=== PATIENT | female | born 1985 | race African-American/Black ===

== ENCOUNTER 2016-11-29 03:30 | Emergency (ER) | payer MEDICAID ==
[~2016-11-29] VITALS: Ht 160 cm; Wt 68.0 kg
[~2016-11-29 03:30] MED LIST: DICY1TAB26 PO; PROM25SU8 PO; ZOFR4TAB3 SL
[2016-11-29 03:33] VITALS: BP 124/76; PULSE 64; RESP 16; TEMP 98; O2SAT 100
== END 2016-11-29 04:14 | disposition left against medical advice (07) ==
LOC: NED 03:30
DX: Z53.21 Procedure and treatment not carried out due to patient leaving prior to being seen by health care provider (principal)
CPT/HCPCS: 99281

== ENCOUNTER 2017-01-22 14:26 | Emergency (ER) | payer MEDICAID ==
[2017-01-22 14:27] VITALS: BP 132/84; PULSE 112; RESP 20; TEMP 97.8; O2SAT 99
[2017-01-22 14:40] VITALS: BP 131/78; PULSE 105; RESP 18; O2SAT 100
--- NOTE | 2017-01-22 14:53 | PD ---
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 Last period approximately 6 weeks ago. She was due to have her menses 2 weeks ago but missed it. Today she began to have cramping within the pelvis, vaginal bleeding. This is her normal menses. She does not believe she could be , but has not taken any home test. Patient states that she is using one pad every 3-4 hours, dime size clots. No urinary symptoms. Pain is mild to moderate, crampy, primarily suprapubic but radiates her at the pelvis PFSH Past Medical History Hx Anticoagulant Therapy: No Asthma: Yes Blood Disorders: No Cardiovascular Problems: No Chemotherapy: No Cerebrovascular Accident: No Diabetes: No Hypertension: Yes Respiratory: No ?: Unknown : 2 Para: 1 : 1 Past Surgical History Hysterectomy: No Social History Alcohol Use: Yes Tobacco Use: Yes (1/2 PPD) Substance Use: No Allergies-Medications (Allergen,Severity, Reaction): Coded Allergies: No Known Allergies (Verified , 11/29/16) Reported Meds & Prescriptions Reported Meds & Active Scripts Active No Active Prescriptions or Reported Medications Review of Systems Except as stated in HPI: all other systems reviewed are Neg Physical Exam Narrative GENERAL: Well-appearing female in no acute distress SKIN: Focused skin assessment warm/dry. HEAD: Normocephalic. EYES: No scleral icterus. No injection or drainage. ENT: Mucous membranes pink and moist. NECK: Supple CARDIOVASCULAR: Regular rate and rhythm. RESPIRATORY: No accessory muscle use. GASTROINTESTINAL: Abdomen soft, non-tender, nondistended. MUSCULOSKELETAL: Normal gait NEUROLOGICAL: Awake and alert. Normal speech. PSYCHIATRIC: Appropriate mood and affect; insight and judgment normal. Data Data Last Documented VS Vital Signs Date Time Temp Pulse Resp B/P Pulse Ox O2 Delivery O2 Flow Rate FiO2 01/22/17 14:40 105 18 131/78 100 Room Air 01/22/17 14:27 97.8 Orders Ed Urine Pregnancytest Poc (01/22/17 14:42) MDM Medical Decision Making Medical Screen Exam Complete: Yes Emergency Medical Condition: Yes Medical Record Reviewed: Yes Differential Diagnosis 31-year-old female here with complaint of vaginal bleeding and cramping in the abdomen/pelvis 2 weeks after missed period. Differential includes , ectopic , threatened AB, missed AB, inevitable AB, dysmenorrhea, menorrhagia Narrative Course Urine test negative. Symptoms likely due to a 2 week late menstrual period, which will no doubt be heavier given 2 additional weeks of endometrial lining to shed. 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 Med/Other Pt SpecificInfo: No Change to Meds Scripts No Active Prescriptions or Reported Meds Disposition: 01 DISCHARGE HOME Condition: Stable Nasrin Sahu MD Jan 22, 2017 14:53
== END 2017-01-22 15:27 | disposition home or self-care (01) ==
LOC: NEPD 14:26
DX: N94.6 Dysmenorrhea, unspecified (principal); J45.909 Unspecified asthma, uncomplicated; I10 Essential (primary) hypertension; R10.9 Unspecified abdominal pain; N92.0 Excessive and frequent menstruation with regular cycle
CPT/HCPCS: 84703; 99282

== ENCOUNTER 2017-03-02 09:02 | Emergency (ER) | payer MEDICAID ==
[~2017-03-02] VITALS: Ht 165.1 cm; Wt 75.0 kg
[2017-03-02 09:04] VITALS: BP 166/100; PULSE 56; RESP 36; TEMP 97.8; O2SAT 100
[2017-03-02 09:12] VITALS: BP 138/90; PULSE 68; RESP 16; TEMP 97.6; O2SAT 100
[2017-03-02] MEDS ORDERED: SODIUM CHLOR 0.9% 1000 ML INJ 1,000 ML IV SCH (09:18)
[2017-03-02] MEDS ORDERED: PANTOPRAZOLE SODIUM 40 MG VIAL IVP ONE (09:30)
[2017-03-02] MEDS ORDERED: SODIUM CHLORIDE 0.9% FLUSH 10 ML FLUSH IV FLUSH PRN (09:30)
[2017-03-02] MEDS ORDERED: SODIUM CHLOR 0.9% 1000 ML INJ 1,000 ML IV ONE (09:30)
[2017-03-02] MEDS ORDERED: ONDANSETRON HCL 4 MG/2 ML VIAL IVP ONE (09:30)
--- NOTE | 2017-03-02 09:53 | PD ---
HPI Chief Complaint: Alcohol/Drug Intoxication Time Seen by Provider: 09:12 Travel History International Travel<30 days: No Contact w/Intl Traveler<30days: No Traveled to known affect area: No History of Present Illness HPI 31-year-old female came to the emergency room with history of vomiting, epigastric pain and hyperventilation since this morning. Patient says she vomited about 6 times. She drank a lot of alcohol last night and thinks it's from that. She appears to be very anxious and in significant distress. However her vital signs are completely stable. She asked me for a vomitus bag but didn't really throw up anything. She says she feels like vomiting but there is nothing left in her stomach to throw up. I asked the nurse to do a bedside blood glucose which was 133. I was unable to get any more history out of her than this. PFSH Past Medical History Narrative Medical List of her past medical, surgical, social and family history was reviewed from the nursing note. Hx Anticoagulant Therapy: No Asthma: Yes Blood Disorders: No Cardiovascular Problems: No Chemotherapy: No Cerebrovascular Accident: No Diabetes: No Diminished Hearing: No Hypertension: Yes Respiratory: No ?: Not LMP: 02/16/17 : 2 Para: 1 : 1 Past Surgical History Surgical History: No Previous Surgery Hysterectomy: No Social History Alcohol Use: Yes (TWICE A WEEK) Tobacco Use: Yes (1/2 PPD CLAIMS QUIT A MONTH AGO) Substance Use: No Allergies-Medications (Allergen,Severity, Reaction): Coded Allergies: No Known Allergies (Verified , 11/29/16) Comments No known drug allergies. Reported Meds & Prescriptions Reported Meds & Active Scripts Active Zofran Odt (Ondansetron Odt) 4 Mg Tab 4 Mg SL Q6HR PRN Omeprazole 20 Mg Tab 20 Mg PO DAILY Narrative Medication List of her home medications reviewed from the nursing note. Review of Systems Except as stated in HPI: all other systems reviewed are Neg Physical Exam Narrative GENERAL: Awake, alert, anxious, significant distress SKIN: Focused skin assessment warm/dry. HEAD: Atraumatic. Normocephalic. EYES: Pupils equal and round. No scleral icterus. No injection or drainage. ENT: No nasal bleeding or discharge. Mucous membranes pink and moist. NECK: Trachea midline. No JVD. CARDIOVASCULAR: Regular rate and rhythm. No murmur appreciated. RESPIRATORY: No accessory muscle use. Clear to auscultation. Breath sounds equal bilaterally. GASTROINTESTINAL: Abdomen soft, non-tender, nondistended. Hepatic and splenic margins not palpable. MUSCULOSKELETAL: No obvious deformities. No clubbing. No cyanosis. No edema. NEUROLOGICAL: Awake and alert. No obvious cranial nerve deficits. Motor grossly within normal limits. Normal speech. PSYCHIATRIC: Appropriate mood and affect; insight and judgment normal. Data Data Last Documented VS Vital Signs Date Time Temp Pulse Resp B/P Pulse Ox O2 Delivery O2 Flow Rate FiO2 03/02/17 09:12 97.6 68 16 138/90 100 03/02/17 09:04 Room Air Orders Beta Hcg (Quant/Titer) (03/02/17 09:18) Complete Blood Count With Diff (03/02/17 09:18) Comprehensive Metabolic Panel (03/02/17 09:18) Lipase (03/02/17 09:18) Iv Access Insert/Monitor (03/02/17 09:18) Ecg Monitoring (03/02/17 09:18) Oximetry (03/02/17 09:18) Ondansetron Inj (Zofran Inj) (03/02/17 09:30) Pantoprazole Inj (Protonix Inj) (03/02/17 09:30) Sodium Chlor 0.9% 1000 Ml Inj (Ns 1000 M (03/02/17 09:18) Sodium Chloride 0.9% Flush (Ns Flush) (03/02/17 09:30) Sodium Chlor 0.9% 1000 Ml Inj (Ns 1000 M (03/02/17 09:30) Labs Laboratory Tests Test 03/02/17 09:45 White Blood Count 9.9 TH/MM3 Red Blood Count 4.03 MIL/MM3 Hemoglobin 13.3 GM/DL Hematocrit 39.5 % Mean Corpuscular Volume 98.0 FL Mean Corpuscular Hemoglobin 32.9 PG Mean Corpuscular Hemoglobin 33.5 % Concent Red Cell Distribution Width 14.6 % Platelet Count 240 TH/MM3 Mean Platelet Volume 8.4 FL Neutrophils (%) (Auto) 78.0 % Lymphocytes (%) (Auto) 16.2 % Monocytes (%) (Auto) 5.0 % Eosinophils (%) (Auto) 0.0 % Basophils (%) (Auto) 0.8 % Neutrophils # (Auto) 7.8 TH/MM3 Lymphocytes # (Auto) 1.6 TH/MM3 Monocytes # (Auto) 0.5 TH/MM3 Eosinophils # (Auto) 0.0 TH/MM3 Basophils # (Auto) 0.1 TH/MM3 CBC Comment DIFF FINAL Differential Comment Sodium Level 140 MEQ/L Potassium Level 4.0 MEQ/L Chloride Level 106 MEQ/L Carbon Dioxide Level 22.2 MEQ/L Anion Gap 12 MEQ/L Blood Urea Nitrogen 12 MG/DL Creatinine 0.88 MG/DL Estimat Glomerular Filtration 90 ML/MIN Rate Random Glucose 132 MG/DL Calcium Level 9.3 MG/DL Total Bilirubin 0.5 MG/DL Aspartate Amino Transf 28 U/L (AST/SGOT) Alanine Aminotransferase 30 U/L (ALT/SGPT) Alkaline Phosphatase 58 U/L Total Protein 7.4 GM/DL Albumin 4.0 GM/DL Lipase 145 U/L Human Chorionic Gonadotropin, LESS THAN 1 Quant MIU/ML MDM Medical Decision Making Medical Screen Exam Complete: Yes Emergency Medical Condition: Yes Medical Record Reviewed: Yes Differential Diagnosis Alcoholic gastritis, alcoholic ketoacidosis Narrative Course 9:52 AM patient has been given IV fluid bolus 2 and IV Zofran and IV Protonix. Waiting for the blood test results. 10:30 AM blood tests are all within normal limit. Patient will be discharged home. Procedures EKG Prior to Arrival: No Diagnosis Primary Impression: Alcoholic gastritis Qualified Code: K29.20 - Acute alcoholic gastritis without hemorrhage Additional Impression: Anxiety Referrals: Primary Care Physician Additional Instructions: Do not drink any more alcohol to symptoms subside. Take the medication as per the prescription direction. Follow-up with your primary care. Return to the ER if the condition worsens or any other new concerns. Med/Other Pt SpecificInfo: Prescription(s) given Scripts Ondansetron Odt (Zofran Odt)4 Mg Tab4 Mg SL Q6HR PRN (Nausea/Vomiting) #10 TAB Ref 0 Prov:Norma Dobbs MD 03/02/17 Omeprazole 20 Mg Tab20 Mg PO DAILY #14 TAB Ref 0 Prov:Norma Dobbs MD 03/02/17 Disposition: 01 DISCHARGE HOME Condition: Stable Norma Dobbs MD Mar 02, 2017 09:53 Norma Dobbs MD Mar 02, 2017 09:53
[2017-03-02 10:10] LABS: AUTOMATED NEUTROPHIL # 7.8 TH/MM3 (1.8-7.7); BASOPHIL # 0.1 TH/MM3 (0-0.2); BASOPHIL % 0.8 % (0.0-2.0); HEMATOCRIT 39.5 % (35.0-46.0); HEMO FLAGS DIFF FINAL; LYMPH % 16.2 % (9.0-44.0); LYMPHOCYTE # 1.6 TH/MM3 (1.0-4.8); MEAN CORPUSCULAR HEMOGLOBIN 32.9 PG (27.0-34.0); MEAN CORPUSCULAR HGB CONC 33.5 % (32.0-36.0); PLATELET COUNT 240 TH/MM3 (150-450); RED BLOOD COUNT 4.03 MIL/MM3 (4.00-5.30); RED CELL DISTRIBUTION WIDTH 14.6 % (11.6-17.2); WHITE BLOOD COUNT 9.9 TH/MM3 (4.0-11.0)
[2017-03-02 10:20] LABS: ALT (GPT) 30 U/L (10-53); ANION GAP 12 MEQ/L (5-15); AST (GOT) 28 U/L (15-37); BICARBONATE 22.2 MEQ/L (21.0-32.0); BLOOD UREA NITROGEN 12 MG/DL (7-18); CHLORIDE 106 MEQ/L (98-107); GLOMERULAR FILTRATION RATE 90 ML/MIN (>89); SODIUM (NA) 140 MEQ/L (136-145)
[2017-03-02 10:24] LABS: ALKALINE PHOSPHATASE 58 U/L (45-117); BETA HCG QUANT LESS THAN 1 MIU/ML (0-5); TOTAL BILIRUBIN ADULT 0.5 MG/DL (0.2-1.0)
[2017-03-02] MEDS ORDERED: ZOFR4TAB3 SL (10:31)
[2017-03-02] MEDS ORDERED: OMEP20TA PO (10:31)
== END 2017-03-02 11:24 | disposition home or self-care (01) ==
LOC: NEPE 09:02
DX: K29.20 Alcoholic gastritis without bleeding (principal); F41.9 Anxiety disorder, unspecified; R06.4 Hyperventilation; I10 Essential (primary) hypertension; J45.909 Unspecified asthma, uncomplicated; Z79.899 Other long term (current) drug therapy
CPT/HCPCS: 80053; 83690; 84702; 85025; 96374; 96375; 99284; C9113; J2405; J7030

== ENCOUNTER 2017-07-25 20:01 | Emergency (ER) | payer MEDICAID ==
[~2017-07-25 20:01] MED LIST changes: -DICY1TAB26 PO; +OMEP20TA93 PO; -PROM25SU8 PO
[2017-07-25 20:02] VITALS: BP 156/72; PULSE 86; RESP 16; TEMP 98; O2SAT 99
--- NOTE | 2017-07-25 20:29 | PD ---
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 She states that she had "360 LIPO suction" one week ago. She was told just to remove her drain. She states that when she went to remove the drain it causes discomfort so she opted to be evaluated. She denies any fever chills. No abdominal pain. No purulent drainage. Symptoms are mild. History Past Medical Histgory Medical History: Denies Significant Hx LMP: 07/18/17 Hx Chemotherapy: No Social History Alcohol Use: Yes (TWICE A WEEK) Tobacco Use: Yes (1/2 PPD CLAIMS QUIT A MONTH AGO) Allergies-Medications (Allergen,Severity, Reaction): Coded Allergies: No Known Allergies (Verified , 11/29/16) Reported Meds & Prescriptions Reported Meds & Active Scripts Active Zofran Odt (Ondansetron Odt) 4 Mg Tab 4 Mg SL Q6HR PRN Omeprazole 20 Mg Tab 20 Mg PO DAILY Review of Systems General / Constitutional: No: Fever Eyes: No: Visual changes HENT: No: Headaches Cardiovascular: No: Chest Pain or Discomfort Respiratory: No: Shortness of Breath Gastrointestinal: No: Abdominal Pain Genitourinary: No: Dysuria Musculoskeletal: No: Pain Skin: No Rash Neurologic: No: Weakness Psychiatric: No: Depression Endocrine: No: Polydipsia Hematologic/Lymphatic: No: Easy Bruising Physical Exam Narrative GENERAL: This is a well-nourished, well-developed patient, in no apparent distress. SKIN: No rashes, ecchymoses or lesions. Warm and dry. HEAD: Atraumatic. Normocephalic. EYES: PERRL, EOMI, no discharge or injection. No scleral icterus. EARS: Clear NOSE: Nasal turbinates appear normal. THROAT: Mucosa pink and moist. Airway patent. NECK: Trachea midline. supple, moves head freely. LUNGS: Clear to auscultation. CV: Regular in rhythm. ABDOMEN: Soft nontender. Patient has a LISSY drain in the right lower abdomen. There is no purulence. Abdomen soft and nontender. EXT: No clubbing cyanosis or edema. Data Data Last Documented VS Vital Signs Date Time Temp Pulse Resp B/P (MAP) Pulse Ox O2 Delivery O2 Flow Rate FiO2 07/25/17 20:02 98.0 86 16 156/72 (100) 99 Room Air MDM Medical Screen Exam Complete: Yes Emergency Medical Condition: No Differential Diagnosis Differential diagnosis: Wound infection, LISSY drain removal, cellulitis, abscess Narrative Course A medical screening exam was performed: At the time of evaluation the presenting medical condition was determined not to be of an emergent nature. The patient was given the option of receiving additional care, but declined. Patient was given options for additional community resources from which to obtain care. The Patient Has Been advised to seek medical attention for their presenting complaint. The patient has been advised to return to the ER at any time if an emergent condition develops. Primary Impression: Encounter for medical screening examination Condition: Sourav Yu Jul 25, 2017 20:29
== END 2017-07-25 20:33 | disposition left against medical advice (07) ==
LOC: NEPK 20:01
DX: Z48.03 Encounter for change or removal of drains (principal)
CPT/HCPCS: 99281

== ENCOUNTER 2017-12-01 15:03 | Emergency (ER) | payer MEDICAID ==
[2017-12-01 15:07] VITALS: BP 138/79; PULSE 64; RESP 16; O2SAT 100
== END 2017-12-01 18:52 | disposition left against medical advice (07) ==
LOC: NED 15:03
DX: R11.10 Vomiting, unspecified (principal); Z53.21 Procedure and treatment not carried out due to patient leaving prior to being seen by health care provider
CPT/HCPCS: 99281